=== PATIENT | male | born 1950 | race Caucasian/White ===

== ENCOUNTER 2017-07-09 20:36 | Emergency (ER) | payer OTHER ==
[~2017-07-09] VITALS: Ht 198.1 cm; Wt 102.6 kg
[2017-07-09 20:47] VITALS: TEMP 36.4; Ht 198.1 cm; Wt 102.6 kg
[2017-07-09] MEDS ORDERED: TNR50 PO (21:13)
--- NOTE | 2017-07-09 21:53 | EMERGENCY ROOM VISIT NOTE ---
History Report prepared by Minervaibe: Netta Powell Under the Supervision of: Dr. Km Tovar M.D. First contact with patient: 21:14 Chief Complaint: FALL Stated Complaint: FALL, ETOH History of Present Illness The patient is a 66 year old male who presents to the Emergency Room with complaints of episode of a fall occurring just prior to arrival. The patient notes that he had surgery on his left foot a couple weeks ago. He notes that he drank a little too much at a tailgate and fell. The patient notes he hit his head and skinned his knee from the fall. Source of History: patient Onset: just prior to arrival Position: other (generalized) Timing: other (episode) Modifying Factors (Relieving): other (none) Review of Systems See HPI for pertinent positives and negatives. A total of ten systems were reviewed and were otherwise negative. Past Medical & Surgical Medical Problems: (1) No Known Active Medical Problems Family History No pertinent family history stated Social History Smoking Status: Never Smoker Alcohol Use: occasionally Marital Status: Housing Status: lives with family Current/Historical Medications Scheduled Atenolol (Atenolol), 50 MG PO DAILY Allergies Coded Allergies: No Known Allergies (Unverified , 07/09/17) Physical Exam Vital Signs Date Time Temp Pulse Resp B/P (MAP) Pulse Ox O2 Delivery O2 Flow Rate FiO2 07/09/17 23:20 76 20 134/79 98 07/09/17 22:35 78 20 154/87 95 Room Air 07/09/17 21:29 82 07/09/17 20:47 36.4 84 21 188/93 96 Room Air Physical Exam GENERAL: Awake, alert, mildly slurred speech, smells of alcohol, in no distress HENT: Normocephalic, right frontal 2 cm abrasion no hematoma. Oropharynx unremarkable. Dry MM. EYES: Normal conjunctiva. Sclera non-icteric. NECK: Supple. No nuchal rigidity. FROM. No JVD. RESPIRATORY: Clear to auscultation. CARDIAC: Regular rate, normal rhythm. Extremities warm and well perfused. Pulses equal. ABDOMEN: Soft, non-distended. No tenderness to palpation. No rebound or guarding. No masses. RECTAL: Deferred. MUSCULOSKELETAL: Cervical in place, CTL unremarkable. Chest examination reveals no tenderness. The back is symmetrical on inspection without obvious abnormality. There is no CVA tenderness to palpation. No joint edema. LOWER EXTREMITIES: Calves are equal size bilaterally and non-tender. No edema. No discoloration. Left foot post-op boot in place. NEURO: Normal sensorium. No sensory or motor deficits noted. SKIN: No rash or jaundice noted. Medical Decision & Procedures ER Provider Diagnostic Interpretation: Radiology results as stated below per my review and radiologist interpretation: CT SCAN OF THE CERVICAL SPINE FINDINGS: Skeletal structures: The skeletal structures are well mineralized. There is no evidence of fracture or subluxation involving the cervical spine. Vertebral body height and alignment are maintained. There is straightening of the cervical lordosis. The odontoid process and lateral masses are intact. The atlantoaxial articulation is preserved noting mild productive degenerative change. The spinous processes appear intact. Large confluent anterior osteophytes are seen from C2 through C7. A large bone island is seen within the left aspect of C4. There is moderate to advanced multilevel cervical spondylosis. Uncovertebral and facet arthropathy contribute to multilevel neural foraminal narrowing. Intervertebral discs: There is moderate to advanced disc space narrowing seen at C6-C7. Moderate disc space narrowing is seen at C7-T1. Central canal: Large posterior disc osteophyte complexes at C5-C6 and C6-C7 likely contribute to acquired compromise of the central canal. Soft tissues: The prevertebral and paraspinous soft tissues are within normal limits. There is atherosclerotic calcification of the carotid bulbs. Cerumen is noted within the right external auditory canal. Calvarium: The visualized calvarium at the skull base appears intact. Brain parenchyma: Partially visualized brain parenchyma the skull base is within normal limits. Sinuses and mastoids: Trace mucosal thickening is seen within the maxillary antra. There is a small right mastoid effusion. The left mastoid air cells are well pneumatized. Lung apices: Clear as visualized. IMPRESSION: 1. There is no evidence of fracture or subluxation involving the cervical spine. 2. Multilevel spondylosis as above. Large flowing anterior osteophytes are seen throughout the cervical spine. Electronically signed by: Tobias Josue M.D. CT SCAN OF THE BRAIN WITHOUT IV CONTRAST FINDINGS: Brain parenchyma: There are age-related involutional changes noting minimal subcortical and periventricular microangiopathic change. There is no hemorrhage, mass effect, or evidence of acute territorial ischemia by CT criteria. Chopra-white matter is preserved. No extra-axial fluid collection is seen. Ventricles, sulci, cisterns: Prominent secondary to involutional change. Intracranial vasculature: There is mild atherosclerotic calcification of the cavernous carotid arteries. Calvarium: There is no depressed calvarial fracture. Sinuses and mastoids: Trace mucosal thickening is seen in the maxillary antra. The remaining visualized paranasal sinuses are clear. The mastoid air cells are well pneumatized. Orbits: The bony orbits are grossly intact. IMPRESSION: There is no hemorrhage, mass effect, or evidence of acute territorial ischemia by CT criteria. Electronically signed by: Tobias Josue M.D. ED Course 2142: The patient was evaluated in room A12A. A complete history and physical exam was performed. 2258: I reevaluated the patient he is resting comfortably. 2314: I reevaluated the patient. Discussed results and discharge instructions: He verbalized understanding and agreement. The patient is ready for discharge. Medical Decision I reviewed the patient's past medical history, medications, and the nursing notes as described above. Differential Diagnoses: alcohol intoxication, intracranial hemorrhage, abrasion , mechanical fall. The patient is a 66 y/o gentleman with a pmhx of recent foot surgery presents to the ED after having a fall at the football game when he miss-stepped with his crutches in the setting of mild alcohol intoxication. On arrival the patient has mild slurred speech. Minor abrasion to forehead. Neuro intact. CT head and Cspine unremarkable. Patient improved and ambulating with crutches steadily. Findings and plan for follow-up reviewed with patient. Patient agreeable and d/c'd per discharge instructions. Medication Reconcilliation Current Medication List: was personally reviewed by me Blood Pressure Screening Patient's blood pressure: Normal blood pressure Impression Primary Impression: Fall Additional Impressions: Head contusion Alcohol intoxication Scribe Attestation The scribe's documentation has been prepared under my direction and personally reviewed by me in its entirety. I confirm that the note above accurately reflects all work, treatment, procedures, and medical decision making performed by me. Departure Information Dispostion Home / Self-Care Referrals Cristhian Macdonald M.D. (PCP) Forms HOME CARE DOCUMENTATION FORM, IMPORTANT VISIT INFORMATION Patient Instructions Bruises Contusions, ED Alcohol Intoxication, ED Head Injury Closed, ED Mechanical Fall, My [facility] Additional Instructions Please follow up with your primary care physician in the next 1-3 days for re- evaluation. Otherwise, your exam and CT scan of your head and neck did not show signs of an emergent condition at this time. Return to the emergency department for worsening symptoms as described in the accompanying instructions. Problem Qualifiers
--- NOTE | 2017-07-09 22:35 | DIAGNOSTIC IMAGING REPORT ---
CT SCAN OF THE BRAIN WITHOUT IV CONTRAST CLINICAL HISTORY: Trauma. Fall. COMPARISON STUDY: No priors. TECHNIQUE: Unenhanced axial CT scan of the brain is performed from the vertex to the skull base. FINDINGS: Brain parenchyma: There are age-related involutional changes noting minimal subcortical and periventricular microangiopathic change. There is no hemorrhage, mass effect, or evidence of acute territorial ischemia by CT criteria. Chopra-white matter is preserved. No extra-axial fluid collection is seen. Ventricles, sulci, cisterns: Prominent secondary to involutional change. Intracranial vasculature: There is mild atherosclerotic calcification of the cavernous carotid arteries. Calvarium: There is no depressed calvarial fracture. Sinuses and mastoids: Trace mucosal thickening is seen in the maxillary antra. The remaining visualized paranasal sinuses are clear. The mastoid air cells are well pneumatized. Orbits: The bony orbits are grossly intact. IMPRESSION: There is no hemorrhage, mass effect, or evidence of acute territorial ischemia by CT criteria. Electronically signed by: Tobias Josue M.D. 07/09/2017 10:34 PM Dictated Date/Time: 07/09/2017 10:32 PM
--- NOTE | 2017-07-09 22:47 | DIAGNOSTIC IMAGING REPORT ---
CT SCAN OF THE CERVICAL SPINE CLINICAL HISTORY: Trauma. Fall. COMPARISON STUDY: No priors. TECHNIQUE: CT scan of the cervical spine is performed from the skull base to the upper thoracic spine. Images are reviewed in the axial, sagittal, and coronal planes. IV contrast was not administered for this examination. A dose lowering technique was utilized adhering to the principles of ALARA. CT DOSE: 1127.59 mGy.cm FINDINGS: Skeletal structures: The skeletal structures are well mineralized. There is no evidence of fracture or subluxation involving the cervical spine. Vertebral body height and alignment are maintained. There is straightening of the cervical lordosis. The odontoid process and lateral masses are intact. The atlantoaxial articulation is preserved noting mild productive degenerative change. The spinous processes appear intact. Large confluent anterior osteophytes are seen from C2 through C7. A large bone island is seen within the left aspect of C4. There is moderate to advanced multilevel cervical spondylosis. Uncovertebral and facet arthropathy contribute to multilevel neural foraminal narrowing. Intervertebral discs: There is moderate to advanced disc space narrowing seen at C6-C7. Moderate disc space narrowing is seen at C7-T1. Central canal: Large posterior disc osteophyte complexes at C5-C6 and C6-C7 likely contribute to acquired compromise of the central canal. Soft tissues: The prevertebral and paraspinous soft tissues are within normal limits. There is atherosclerotic calcification of the carotid bulbs. Cerumen is noted within the right external auditory canal. Calvarium: The visualized calvarium at the skull base appears intact. Brain parenchyma: Partially visualized brain parenchyma the skull base is within normal limits. Sinuses and mastoids: Trace mucosal thickening is seen within the maxillary antra. There is a small right mastoid effusion. The left mastoid air cells are well pneumatized. Lung apices: Clear as visualized. IMPRESSION: 1. There is no evidence of fracture or subluxation involving the cervical spine. 2. Multilevel spondylosis as above. Large flowing anterior osteophytes are seen throughout the cervical spine. Electronically signed by: Tobias Josue M.D. 07/09/2017 10:46 PM Dictated Date/Time: 07/09/2017 10:42 PM
[2017-07-09 23:20] VITALS: BP 134/79; PULSE 76; O2SAT 98
== END 2017-07-09 23:21 | disposition home or self-care (01) ==
LOC: EDBD 20:36 → C.EDA 20:37
DX: S00.83XA Contusion of other part of head, initial encounter (principal); W19.XXXA Unspecified fall, initial encounter; F10.129 Alcohol abuse with intoxication, unspecified; Z79.899 Other long term (current) drug therapy